=== PATIENT | male | born 1955 | race Caucasian/White ===

== ENCOUNTER 2023-06-05 12:34 | Inpatient (IN) | payer MEDICARE, MEDICAID ==
[~2023-06-05] VITALS: Ht 170.2 cm; Wt 63.0 kg
[2023-06-05] MEDS ORDERED: ACET-868 PO (13:18)
[2023-06-05] MEDS ORDERED: MIRT-90 PO (13:18)
[2023-06-05] MEDS ORDERED: MUPI15CR TP (13:18)
[2023-06-05] MEDS ORDERED: BISA5TAB10 PO (13:18)
[2023-06-05] MEDS ORDERED: OLAN2.5T3 PO (13:18)
[2023-06-05] MEDS: PIPERACILLIN /TAZOBACTAM 3.375 G in IV D5W 50 ML IV ONE (13:30)
[2023-06-05] MEDS ORDERED: PIPERACI/TAZO 3.375GM/D5W 50ML PB IV ONE (13:35)
[2023-06-05] MEDS ORDERED: VANCOMYCIN 1 GM /D5W 250 ML PB IV ONE (13:35)
[2023-06-05] MEDS: VANCOMYCIN 1 GM in IV D5W 250 ML IV ONE (14:00)
[2023-06-05 14:40] LABS: BASOPHILS # (AUTO) 0.1 K/uL (0.0-0.2); BASOPHILS % (AUTO) 1.7 % (0.0-2.0); EOSINOPHILS # (AUTO) 0.2 K/uL (0.0-0.7); EOSINOPHILS % (AUTO) 3.2 % (0.0-6.0); HEMATOCRIT 48 % (39-51); HEMOGLOBIN 16.6 g/dL (13.5-17.5); LYMPHOCYTES # (AUTO) 1.3 K/uL (0.8-4.8); LYMPHOCYTES % (AUTO) 20.4 % (20.0-44.0); MEAN CORPUSCULAR HEMOGLOBIN 32 PG (26.0-33.0); MEAN CORPUSCULAR HGB CONC 34 g/dl (31.0-36.0); MEAN CORPUSCULAR VOLUME 93 fL (80-96); MONOCYTES # (AUTO) 0.5 K/uL (0.1-1.30); NEUTROPHILS # (AUTO) 4.3 K/uL (1.8-8.9); NEUTROPHILS % (AUTO) 66.7 % (43.0-81.0); PLATELET COUNT (AUTO) 248 K/uL (150-450); RED CELL DISTRIBUTION WIDTH 14.1 % (11.5-15.0); WHITE BLOOD COUNT (AUTO) 6.5 K/uL (4.3-11.0)
[2023-06-05 15:12] LABS: CALCIUM, SERUM 9.2 mg/dL (8.5-10.1); CREATININE 0.7 mg/dL (0.6-1.3); POTASSIUM 5.3 mmol/L (3.5-5.1)
[2023-06-05 15:25] LABS: ALBUMIN 3.2 g/dL (3.4-5.0); BILIRUBIN,TOTAL 0.8 mg/dL (0.2-1.0); TOTAL PROTEIN, SERUM 7.5 g/dL (6.4-8.2)
[2023-06-05 15:41] LABS: BILIRUBIN,DIRECT 0.1 mg/dL (0.0-0.2)
[2023-06-05 15:57] LABS: INR 1.08 (0.91-1.10); PARTIAL THROMBOPLASTIN TIME 31.9 SEC (24.3-34.3); PROTHROMBIN TIME 11.4 SECS (9.2-11.1)
[2023-06-05 16:00] VITALS: BP 115/76; TEMP 98; O2SAT 100
[2023-06-05] MEDS ORDERED: MAGNESIUM HYDROXIDE 30 ML UDC PO PRN (16:00)
[2023-06-05] MEDS ORDERED: Z GUARD REMEDY 4 OZ OINT TP PRN ×2 (16:00→16:15)
[2023-06-05] MEDS ORDERED: BISACODYL (5 MG) 5 MG TABLET.DR PO PRN (16:00)
[2023-06-05] MEDS ORDERED: ACETAMINOPHEN 325 MG TABLET PO PRN (16:00)
[2023-06-05] MEDS ORDERED: HYDROCODONE/APAP 5/325MG TABLET PO PRN (16:00)
[2023-06-05] MEDS ORDERED: ZOLPIDEM TARTRATE 5 MG TABLET PO PRN (16:00)
[2023-06-05] MEDS ORDERED: ONDANSETRON HCL/PF 4 MG/2 ML VIAL IVP PRN (16:00)
[2023-06-05] MEDS ORDERED: MAG HYDROX/AL HYDROX/SIMETH 30 ML UDC PO PRN (16:00)
[2023-06-05] MEDS: SODIUM POLYSTYRENE SULFONATE 15 G/60 ML BOTTLE PO ONE ×2 (16:00→21:11)
[2023-06-05] MEDS: ENOXAPARIN SODIUM 40 MG/0.4 ML DISP.SYRIN SQ SCH (18:00)
[2023-06-05 20:00] VITALS: BP 116/84; TEMP 97.2; O2SAT 97
[2023-06-05] MEDS ORDERED: PIPERACILLIN /TAZOBACTAM 3.375 G in IV D5W 100 ML IV SCH (21:00)
[2023-06-05] MEDS: VANCOMYCIN 750 MG in IV D5W 250 ML IV SCH (21:02)
[2023-06-05] MEDS: MIRTAZAPINE 15 MG TABLET PO SCH (21:12)
[2023-06-05] MEDS ORDERED: VANCOMYCIN 750 MG in IV D5W 250 ML IV SCH (22:00)
[2023-06-05] MEDS: PIPERACILLIN /TAZOBACTAM 3.375 G in IV D5W 100 ML IV SCH (22:10)
[2023-06-05] MEDS: IV NS 0.9% 1,000 ML IV PRN (23:57)
[2023-06-06 04:00] VITALS: BP 133/82; TEMP 97; O2SAT 97
[2023-06-06] MEDS: OLANZAPINE 5 MG TABLET PO SCH (10:01)
[2023-06-06] MEDS: PANTOPRAZOLE 40 MG TABLET.DR PO SCH (10:01)
[2023-06-06 16:00] VITALS: BP 125/80; TEMP 97.8
[2023-06-06 20:00] VITALS: BP 106/77; TEMP 98; O2SAT 96
[2023-06-07 05:51] VITALS: BP 131/89; TEMP 98.4; O2SAT 98
== END 2023-06-07 17:35 | DRG 603 ==
LOC: ER 12:36 → MEDSG1 16:11
DX: L03.032 Cellulitis of left toe (principal); E87.5 Hyperkalemia; L03.031 Cellulitis of right toe; F20.9 Schizophrenia, unspecified
CPT/HCPCS: 36415; 71045-TC; 73630-TC; 80048-TC; 80076-TC; 80202-TC; 85025-TC; 85652-TC; 85730-TC; 86140-TC; 87040-TC; 87081-TC; A4223; G0378; J1650; J2543; J3370; J3371; J7030; J7050; J7060